=== PATIENT | female | born 1985 | race Caucasian/White ===

== ENCOUNTER 2019-10-06 05:27 | Day surgery (SDC) | payer MEDICAID ==
[2019-10-03 11:22] LABS: BASOPHILS % (AUTO) 0.5 % (0-1); EOSINOPHILS # (AUTO) 0.1 X10'3 (0-0.9); LYMPHOCYTES # (AUTO) 1.7 X10'3 (1.1-4.8); MEAN CORPUSCULAR HEMOGLOBIN 27.4 PG (27.0-31.0); MEAN CORPUSCULAR HGB CONC 33.5 g/dL (33.0-36.5); MEAN CORPUSCULAR VOLUME 81.8 FL (78-98); MEAN PLATELET VOLUME 8.5 FL (7.4-10.4); MONOCYTES # (AUTO) 0.4 X10'3 (0-0.9); MONOCYTES % (AUTO) 5.2 % (2-12); NEUTROPHILS # (AUTO) 4.7 X10'3 (1.8-7.7); NEUTROPHILS % (AUTO) 68.3 % (42-75); PRE OP HEMATOCRIT 40.7 % (35.0-45.0); PRE OP HEMOGLOBIN 13.6 g/dL (12.0-16.0); PRE OP PLATELET COUNT 252 X10'3 (140-440); RED BLOOD COUNT 4.98 X10'6 (4.20-5.60); RED CELL DISTRIBUTION WIDTH 13.9 % (11.5-14.5)
[2019-10-03 11:27] LABS: CLARITY,URINE CLEAR (Clear); COLOR,URINE STRAW (Yellow); GLUCOSE, URINE NEGATIVE (Neg); KETONES,URINE NEGATIVE (Neg); LEUKOCYTE ESTERASE ,URINE NEGATIVE (Neg); NITRITES, URINE NEGATIVE (Neg); OCCULT BLOOD,URINE NEGATIVE (Neg); PROTEIN,URINE NEGATIVE (Neg); UROBILINOGEN,URINE 0.2 E.U/dL (0.2-1.0)
[2019-10-03 11:28] LABS: UA COLLECTION TYPE CLN CATCH MIDSTREAM
[2019-10-03 12:14] LABS: HCG SERUM QL NEGATIVE
[2019-10-03 12:50] LABS: ALBUMIN 3.6 G/DL (3.4-5.0); ALBUMIN/GLOBULIN RATIO 0.9 (1.1-1.5); ALKALINE PHOSPHATASE 66 IU/L (46-116); BLOOD UREA NITROGEN 9 MG/DL (7-18); BUN/CREATININE RATIO 11.4 (6.6-38.0); CALCIUM 8.4 MG/DL (8.5-10.1); CHLORIDE 105 MMOL/L (99-107); CREATININE 0.79 MG/DL (0.40-0.90); PRE OP ALT 29 U/L (30-65); PRE OP ANION GAP 11 (8-16); PRE OP AST 18 U/L (10-37); PRE OP BILIRUB, TOTAL 0.3 MG/DL (0.0-1.0); PRE OP GLUCOSE 91 MG/DL (70-104); PRE OP POTASSIUM 3.6 MMOL/L (3.4-5.1); PRE OP SODIUM 141 MMOL/L (135-145); TOTAL CARBON DIOXIDE 25.4 MMOL/L (24-32); TOTAL PROTEIN 7.7 G/DL (6.4-8.2); eGFR 83 ML/MIN
[~2019-10-06] VITALS: Ht 154.9 cm; Wt 76.0 kg
[2019-10-06] VITALS (23 sets, daily range): BP systolic 115–139; BP diastolic 68–94
[~2019-10-06 05:27] MED LIST: BUSP5TAB3 PO; MAGN400C PO; NORE1TAB99 PO
[2019-10-06] MEDS ORDERED: famotidine 10mg tablet PO ONE (05:30)
[2019-10-06] MEDS ORDERED: ceFOXitin 2 GM ADDvantage bag 100 ML IV ONE (05:30)
[2019-10-06] MEDS ORDERED: diazepam 5mg tablet PO PRN (05:30)
[2019-10-06] MEDS ORDERED: LIDOcaine 1% (10mg/ml) 2ml vial ONE (05:57)
[2019-10-06] MEDS: ringers solution, lacted 1,000 ML IV SCH ×4 (06:37→18:33)
[2019-10-06] MEDS ORDERED: BUPIVAcaine/PF 2.5 mg/ml (0.25%) 30ml vial ONE (06:45)
[2019-10-06] MEDS ORDERED: clindamycin phosphate 40gm vag cream ONE (06:45)
[2019-10-06] MEDS ORDERED: epiNEPHrine 1 mg/ml inj ONE (06:45)
[2019-10-06] MEDS ORDERED: neomy sulf/polymyxin B sulf. GU irrigation 1ml amp IR ONE (06:45)
[2019-10-06] MEDS ORDERED: vasoPRESSIN 20 units/ml inj. ONE (06:46)
[2019-10-06] MEDS ORDERED: scopolamine 1.5mg patch.TD72 TD ONE (07:18)
[2019-10-06] MEDS ORDERED: sevoflurane 250ml liquid IH ONE (07:27)
[2019-10-06] MEDS ORDERED: ketorolac trometh. 30mg/ml inj. ONE ×2 (07:27→09:32)
[2019-10-06] MEDS ORDERED: midazolam 2 mg/2 ml injection ONE (07:33)
[2019-10-06] MEDS ORDERED: fentaNYL /PF 50mcg/ml 5ml ampule ONE (07:33)
[2019-10-06] MEDS ORDERED: rocuronium 10mg/ml inj IV ONE (07:36)
[2019-10-06] MEDS ORDERED: LIDOcaine 2% (20mg/ml) 5ml vial ONE ×2 (07:36→09:30)
[2019-10-06] MEDS ORDERED: propofol inj 20 ML IV ONE ×2 (07:36→09:30)
[2019-10-06] MEDS ORDERED: ringers solution, lacted 1,000 ML IV SCH (08:41)
[2019-10-06] MEDS ORDERED: morphine 4 MG/ML inj SYRINge IV PRN ×2 (08:45)
[2019-10-06] MEDS ORDERED: proCHLORperazine 10 MG/2 ml inj IV PRN (08:45)
[2019-10-06] MEDS ORDERED: ondansetron/PF 4mg/2ml inj IV PRN ×2 (08:45→09:45)
[2019-10-06] MEDS ORDERED: meperidine/PF 25mg/ml syringe IV PRN ×2 (08:45)
[2019-10-06] MEDS ORDERED: dexamethasone sod phosphate 4mg/ml inj. ONE (09:32)
[2019-10-06] MEDS ORDERED: acetaminophen 1,000mg/100ml IV 100 ML IV ONE (09:34)
--- NOTE | 2019-10-06 09:43 | NUR ---
Received from OR via SURGICAL BED , accompanied by Anesthesiologist SINA and report given by Anesthesiolgist. PATIENT WITH 20G PIV IN RIGHT UE RUNNING LR AT 100. MEDICATED FOR PAIN UPON ARRIVAL 3 ABDOMINAL LAP SITES PRESENT WITH DERMABOND . NO DRAINAGE EVIDENT AT THIS TIME. JOVAN PAD IN PLACE AND IS CDI. DAVILA CATHETER PRESENT WITH CLEAR YELLOW URINE WITHIN ATRIUM. KRISTINE SALAZAR FOR COMFORT. VSS AND SCDS ON. Addendum: 10/06/19 at 0957 by Andre Garner RN, RN Amended: Links added.
[2019-10-06] MEDS ORDERED: metoclopramide 5 mg/ml inj IV PRN (09:45)
[2019-10-06] MEDS ORDERED: LORazepam 1 MG tablet PO PRN (09:45)
[2019-10-06] MEDS ORDERED: diphenhydrAMINE 50 mg/ml inj IV PRN (09:45)
[2019-10-06] MEDS ORDERED: temazepam 15mg capsule PO PRN (09:45)
[2019-10-06] MEDS ORDERED: normal saline 500ml IV soln 500 ML IV PRN (09:45)
[2019-10-06] MEDS ORDERED: magnesium hydroxide 30ml (MOM) UD suspension PO PRN (09:45)
[2019-10-06] MEDS ORDERED: LORazepam 2 mg/ml vial IV PRN (09:45)
[2019-10-06] MEDS ORDERED: HYDROcodone/acetaminophen 10/325mg tab PO PRN (09:45)
[2019-10-06] MEDS: meperidine/PF 25mg/ml syringe IV PRN ×3 (09:52→10:33)
[2019-10-06] MEDS ORDERED: busPIRone 5mg tablet PO PRN (12:05)
--- NOTE | 2019-10-06 12:10 | NUR ---
GOT REPORT FROM [facility]
--- NOTE | 2019-10-06 12:20 | NUR ---
PATIENT ARRIVED ON UNIT, ORIENTED TO FLOOR AND ROOM, CALL LIGHT IN REACH, AT BEDSIDE
--- NOTE | 2019-10-06 12:25 | NUR ---
ALL CRITERIA FOR TRANSFER TO THE FLOOR HAS BEEN ACHIEVED. VSS. BED LOW, CALL LIGHT AND VS. SET IN PLACE. RN PRESENT TO ACCEPT CARE. PATIENT RESTING COMFORTABLY IN BED. BELONGINGS SENT WITH PATIENT. DRESSINGS CDI. RN PRESENT TO ACCEPT CARE. PATIENT CO LOW BACK PAIN. Addendum: 10/06/19 at 1231 by Andre Garner RN, RN Amended: Links added.
[2019-10-06] MEDS: ketorolac trometh. 30mg/ml inj. IV PRN ×2 (13:24→19:33)
[2019-10-06] MEDS: cyclobenzaprine 10mg tablet PO PRN (17:10)
--- NOTE | 2019-10-06 18:25 | NUR ---
Problems reprioritized. Patient report given, questions answered & plan of care reviewed with MARGARITO HULL.
--- NOTE | 2019-10-06 19:00 | NUR ---
Patient in room [facility]. I have received report from Yasemin PIMENTEL and had the opportunity to ask questions and assume patient care. Pt has been experiencing 10/ lower back pain. Abdomen not painful at this time. Addendum: 10/06/19 at 1950 by Yesenia Brumfield RN Amended: Links added.
--- NOTE | 2019-10-06 19:43 | NUR ---
Pt still experiencing lower back pain, warm pack in place. On further examination pt has had lower back pain "off and on for 10-15 years" per pt and has been needing to use "CBD oil" and it feels better. Lower back pain is located where nurse examined it at sacrum and surrounding muscles. pt wants some type of pain med rub. Addendum: 10/06/19 at 1950 by Yesenia Brumfield RN Amended: Links added.
[2019-10-06] MEDS ORDERED: magnesium oxide 400mg tablet PO SCH (21:00)
[2019-10-06] MEDS: docusate sod 100mg capsule PO SCH (21:12)
[2019-10-06] MEDS: HYDROcodone/acetaminophen 10/325mg tab PO PRN (21:13)
[2019-10-06] MEDS: methyl salicylate/menthol cream 85gm TP SCH (22:12)
[2019-10-07] MEDS: cyclobenzaprine 10mg tablet PO PRN (00:47)
--- NOTE | 2019-10-07 01:00 | NUR ---
Pt stated that the [place] back rub has helped her lower back pain. Addendum: 10/07/19 at 0134 by Yesenia Brumfield RN Amended: Links added.
[2019-10-07] MEDS: ringers solution, lacted 1,000 ML IV SCH ×2 (01:20→09:28)
[2019-10-07 03:06] VITALS: BP 127/67
--- NOTE | 2019-10-07 04:00 | NUR ---
Pain in lower back is more under control since back rub medication administered, and she was able to sleep some. Reminded pt that she will need walk as she will get f/c taken out today. Addendum: 10/07/19 at 0453 by Yesenia Brumfield RN Amended: Links added.
[2019-10-07] MEDS: ketorolac trometh. 30mg/ml inj. IV PRN ×2 (04:05→12:10)
[2019-10-07] MEDS: HYDROcodone/acetaminophen 10/325mg tab PO PRN ×2 (04:06→10:23)
[2019-10-07 06:11] LABS: BASOPHILS % (AUTO) 0.2 % (0-1); EOSINOPHILS % (AUTO) 0.1 % (0-6); HEMATOCRIT 32.4 % (35.0-45.0); HEMOGLOBIN 10.9 g/dl (12.0-16.0); LYMPHOCYTES # (AUTO) 1.8 X10'3 (1.1-4.8); LYMPHOCYTES % (AUTO) 18.1 % (21-51); MEAN CORPUSCULAR HEMOGLOBIN 27.8 PG (27.0-31.0); MEAN CORPUSCULAR HGB CONC 33.7 g/dL (33.0-36.5); MEAN CORPUSCULAR VOLUME 82.2 FL (78-98); MEAN PLATELET VOLUME 8.8 FL (7.4-10.4); MONOCYTES # (AUTO) 0.7 X10'3 (0-0.9); MONOCYTES % (AUTO) 7.2 % (2-12); NEUTROPHILS # (AUTO) 7.4 X10'3 (1.8-7.7); NEUTROPHILS % (AUTO) 74.4 % (42-75); PLATELET COUNT 177 X10'3 (140-440); RED BLOOD COUNT 3.94 X10'6 (4.20-5.60); RED CELL DISTRIBUTION WIDTH 13.8 % (11.5-14.5)
[2019-10-07 06:23] LABS: ALBUMIN 2.6 G/DL (3.4-5.0); ANION GAP 7 (8-16); BLOOD UREA NITROGEN 6 MG/DL (7-18); BUN/CREATININE RATIO 7.3 (6.6-38.0); CALCIUM 7.6 MG/DL (8.5-10.1); CHLORIDE 107 MMOL/L (99-107); CREATININE 0.82 MG/DL (0.40-0.90); GLUCOSE 110 MG/DL (70-104); POTASSIUM 3.9 MMOL/L (3.5-5.1); SODIUM 141 MMOL/L (135-145); TOTAL CARBON DIOXIDE 27.1 MMOL/L (24-32); eGFR 79 ML/MIN
--- NOTE | 2019-10-07 06:45 | NUR ---
Problems reprioritized. Patient report given, questions answered & plan of care reviewed with Karissa PIMENTEL. Addendum: 10/07/19 at 0647 by Yesenia Brumfield RN Amended: Links added.
--- NOTE | 2019-10-07 06:57 | NUR ---
Patient in room [facility]. I have received report from Yesenia PIMENTEL and had the opportunity to ask questions and assume patient care.
[2019-10-07 07:00] VITALS: BP 88/42
[2019-10-07 08:00] VITALS: BP 87/38
[2019-10-07] MEDS ORDERED: enoxaparin 40mg/0.4ml syringe SQ SCH (08:00)
[2019-10-07] MEDS: methyl salicylate/menthol cream 85gm TP SCH ×2 (08:00→12:11)
[2019-10-07] MEDS: docusate sod 100mg capsule PO SCH (08:26)
[2019-10-07 11:00] VITALS: BP 95/50
--- NOTE | 2019-10-07 12:30 | NUR ---
Report given to Dr Ryan re: pt's VS, low BPs, I&O's, post F/C removal with bladdar scan 29cc. No new orders at this time.
--- NOTE | 2019-10-07 19:01 | NUR ---
Pt d/c'd to home at 1630. Escorted via w/c by PCT and family to front lobby with all personal belongings. D/C instructions and meds reviewed, prescription provided prior to admission. Pt instructed to followup with Dr Ryan in 2 wks, phone # provided. Pt instructed to contact Dr Ryan's office with any questions/concerns, or s/sx infection. IV d/c'd, cannula intact.
== END 2019-10-07 16:06 | disposition home or self-care (01) ==
LOC: PAS 05:27 → SUR 3N 09:42 → PAS 10-07 16:06
PROVIDERS: ATTEND Obstetrics & Gynecology Obstetrics
DX: R10.2 Pelvic and perineal pain (principal); N85.8 Other specified noninflammatory disorders of uterus; N73.6 Female pelvic peritoneal adhesions (postinfective); N72 Inflammatory disease of cervix uteri; N80.0 Endometriosis of uterus; F41.9 Anxiety disorder, unspecified; D64.9 Anemia, unspecified; F32.9 Major depressive disorder, single episode, unspecified; Z98.890 Other specified postprocedural states; Z91.040 Latex allergy status; Z88.8 Allergy status to other drugs, medicaments and biological substances; Z79.899 Other long term (current) drug therapy; Z87.891 Personal history of nicotine dependence; Z72.89 Other problems related to lifestyle
CPT/HCPCS: 36415; 58552; 71046; 80048; 80053; 81003; 82948; 84703; 85025; 86885; 86900; 86901; J0131; J0171; J0694; J0780; J1100; J1885; J2001; J2175; J2250; J2405; J2704; J3010; J3490; J7120; A4314; A4618; A7000; G0378; J1650